=== PATIENT | male | born 1975 | race Caucasian/White ===

== ENCOUNTER 2019-05-14 10:46 | Inpatient (IN) | payer MEDICAID ==
[2019-05-14 11:21] LABS: CHLORIDE,CL 98 mEq/L (98-106); SODIUM,NA 134 mEq/L (136-145)
[2019-05-14] MEDS ORDERED: Ondansetron 4 MG/2 ML SDV IV PRN (11:52)
[2019-05-14] MEDS: Sodium Chloride 0.9% 1,000 ML IV SCH (12:34)
[2019-05-14] MEDS: Pantoprazole 40 MG Vial IVPUSH SCH (12:42)
[2019-05-14] MEDS: metroNIDAZOLE/Normal Saline 500 MG in Premix Bag 1 BAG IV SCH ×2 (12:46→20:23)
[2019-05-14] MEDS ORDERED: Barium Sulfate Oral Susp 450 ML Bottle PO ONE (14:57)
[2019-05-14] MEDS ORDERED: Albuterol 0.083% 2.5 MG/3 ML Neb Soln INH PRN (15:48)
[2019-05-14] MEDS ORDERED: Insulin Regular, Human 100 Units/ML 10 ML Vial SUBCUT SCH (16:00)
[2019-05-14] MEDS: Insulin Lispro 100 Units/ML 3 ML Vial SUBCUT SCH ×2 (18:00→21:15)
[2019-05-14] MEDS ORDERED: OLOPATADINE HCL EYEBOTH SCH (20:00)
[2019-05-14] MEDS: Fluticasone Propionate Nasal Spray 16 GM Bottle NASBOTH SCH (20:22)
[2019-05-14] MEDS: Gabapentin 300 MG Cap PO SCH (20:25)
[2019-05-14] MEDS: Benztropine 1 MG Tab PO SCH (20:25)
[2019-05-14] MEDS: risperiDONE 1 MG Tab PO SCH (20:26)
[2019-05-14] MEDS: Budesonide 0.5 MG/2 ML Neb Susp INH SCH (20:27)
[2019-05-15] MEDS: Pantoprazole 40 MG Vial IVPUSH SCH ×3 (00:07→23:37)
[2019-05-15] MEDS: Sodium Chloride 0.9% 1,000 ML IV SCH ×2 (00:11→08:45)
[2019-05-15] MEDS: metroNIDAZOLE/Normal Saline 500 MG in Premix Bag 1 BAG IV SCH ×2 (03:32→12:00)
[2019-05-15] MEDS ORDERED: PILOCARPINE PO SCH (08:00)
[2019-05-15] MEDS: Gabapentin 300 MG Cap PO SCH ×3 (08:03→20:09)
[2019-05-15] MEDS: Sertraline 100 MG Tab PO SCH (08:03)
[2019-05-15] MEDS: Losartan 25 MG Tab PO SCH (08:03)
[2019-05-15] MEDS: Benztropine 1 MG Tab PO SCH ×3 (08:03→20:10)
[2019-05-15] MEDS: Budesonide 0.5 MG/2 ML Neb Susp INH SCH ×2 (08:05→20:09)
[2019-05-15] MEDS: Insulin Lispro 100 Units/ML 3 ML Vial SUBCUT SCH ×4 (08:16→20:33)
--- NOTE | 2019-05-15 09:30 | PCM.PN ---
- General Info Date of Service: 05/15/19 Admission Dx/Problem (Free Text): Bowel Obstruction Functional Status: Reports: Pain Controlled, Tolerating Diet, Ambulating - Review of Systems General: Denies: Fever, Weakness, Fatigue, Malaise HEENT: Reports: No Symptoms Pulmonary: Denies: Shortness of Breath Cardiovascular: Denies: Chest Pain, Lightheadedness Gastrointestinal: Denies: Abdominal Pain (mild "soreness"), Nausea, Vomiting Genitourinary: Reports: No Symptoms Musculoskeletal: Reports: No Symptoms Skin: Reports: No Symptoms Neurological: Reports: No Symptoms - Patient Data Vitals - Most Recent: Last Vital Signs Temp 97.8 F 05/15/19 03:51 Pulse 116 H 05/15/19 03:51 Resp 16 05/15/19 03:51 BP 164/87 H 05/15/19 08:03 Pulse Ox 97 05/15/19 03:51 Weight - Most Recent: 189 lb I&O - Last 24 Hours: Intake & Output 05/14/19 05/15/19 05/15/19 22:59 06:59 14:59 Intake Total 2358 212 2464 Output Total 650 900 Balance 450 -300 1000 Lab Results Last 24 Hours: Laboratory Results - last 24 hr 05/14/19 05/14/19 05/14/19 Range/Units 10:51 10:51 10:51 WBC 7.3 (5.0-10.0) 10^3/uL RBC 5.36 (4.50-6.00) 10^6/uL Hgb 15.3 (14.0-18.0) g/dL Hct 46.3 (40.0-54.0) % MCV 86.4 (82.0-94.0) fL MCH 28.5 (27.0-32.0) pg MCHC 33.0 (33.0-38.0) g/dL RDW Coeff of Justin 14.6 (11.0-15.0) % Plt Count 221 (150-400) 10^3/uL Neut % (Auto) 56.1 (35-85) % Lymph % (Auto) 21.4 (10-55) % [place] % (Auto) 19.9 H (0-16) % Eos % (Auto) 2.5 (0-5) % Baso % (Auto) 0.1 (0-3) % Neut # (Auto) 4.07 (1.80-7.00) 10^3/uL Lymph # (Auto) 1.55 (1.00-4.80) 10^3/uL [place] # (Auto) 1.44 H (0.00-0.80) 10^3/uL Eos # (Auto) 0.18 (0.00-0.45) 10^3/uL Baso # (Auto) 0.01 10^3/uL Sodium 134 L (136-145) mEq/L Potassium 4.5 (3.5-5.0) mEq/L Chloride 98 (98-106) mEq/L Carbon Dioxide 26 (21-32) mmol/L BUN 59 H D (7-18) mg/dL Creatinine 1.8 H (0.7-1.3) mg/dL Est Cr Clr Drug Dosing TNP Estimated GFR (MDRD) 41 L (>=60) mL/min Glucose 195 H D (75-99) mg/dL POC Glucose (75-105) mg/dl Lactic Acid (0.4-2.0) mmol/L Calcium 8.4 (8.4-10.1) mg/dL Magnesium 2.2 (1.8-2.4) mg/dL Total Bilirubin 0.5 (0.0-1.0) mg/dL AST 22 (15-37) U/L ALT 35 (12-78) U/L Alkaline Phosphatase 96 (46-116) U/L C-Reactive Protein 12.4 H (0.2-0.8) mg/dL Total Protein 8.1 (6.4-8.2) g/dL Albumin 3.6 (3.4-5.0) g/dL Amylase 12 L (25-115) U/L Urine Color Yellow (YELLOW) Urine Appearance Clear (CLEAR) Urine pH 5.5 (4.5-8.0) Ur Specific [place] 1.015 (1.003-1.020) Urine Protein Negative (NEGATIVE) mg/dL Urine Glucose (UA) 100 H (NEGATIVE) mg/dL Urine Ketones Negative (NEGATIVE) mg/dL Urine Occult Blood Negative (NEGATIVE) Urine Nitrite Negative (NEGATIVE) Urine Bilirubin Negative (NEGATIVE) Urine Urobilinogen 0.2 (0.2-1.0) EU/dL Ur Leukocyte Esterase Trace H (NEGATIVE) Urine RBC 0-5 (0-5) /HPF Urine WBC Not seen (0-5) /HPF 05/14/19 05/14/19 05/14/19 Range/Units 10:51 17:59 21:14 WBC (5.0-10.0) 10^3/uL RBC (4.50-6.00) 10^6/uL Hgb (14.0-18.0) g/dL Hct (40.0-54.0) % MCV (82.0-94.0) fL MCH (27.0-32.0) pg MCHC (33.0-38.0) g/dL RDW Coeff of Justin (11.0-15.0) % Plt Count (150-400) 10^3/uL Neut % (Auto) (35-85) % Lymph % (Auto) (10-55) % [place] % (Auto) (0-16) % Eos % (Auto) (0-5) % Baso % (Auto) (0-3) % Neut # (Auto) (1.80-7.00) 10^3/uL Lymph # (Auto) (1.00-4.80) 10^3/uL [place] # (Auto) (0.00-0.80) 10^3/uL Eos # (Auto) (0.00-0.45) 10^3/uL Baso # (Auto) 10^3/uL Sodium (136-145) mEq/L Potassium (3.5-5.0) mEq/L Chloride (98-106) mEq/L Carbon Dioxide (21-32) mmol/L BUN (7-18) mg/dL Creatinine (0.7-1.3) mg/dL Est Cr Clr Drug Dosing Estimated GFR (MDRD) (>=60) mL/min Glucose (75-99) mg/dL POC Glucose 143 H 140 H (75-105) mg/dl Lactic Acid 1.2 (0.4-2.0) mmol/L Calcium (8.4-10.1) mg/dL Magnesium (1.8-2.4) mg/dL Total Bilirubin (0.0-1.0) mg/dL AST (15-37) U/L ALT (12-78) U/L Alkaline Phosphatase (46-116) U/L C-Reactive Protein (0.2-0.8) mg/dL Total Protein (6.4-8.2) g/dL Albumin (3.4-5.0) g/dL Amylase (25-115) U/L Urine Color (YELLOW) Urine Appearance (CLEAR) Urine pH (4.5-8.0) Ur Specific [place] (1.003-1.020) Urine Protein (NEGATIVE) mg/dL Urine Glucose (UA) (NEGATIVE) mg/dL Urine Ketones (NEGATIVE) mg/dL Urine Occult Blood (NEGATIVE) Urine Nitrite (NEGATIVE) Urine Bilirubin (NEGATIVE) Urine Urobilinogen (0.2-1.0) EU/dL Ur Leukocyte Esterase (NEGATIVE) Urine RBC (0-5) /HPF Urine WBC (0-5) /HPF 05/15/19 05/15/19 05/15/19 Range/Units 08:09 08:45 08:45 WBC 8.4 (5.0-10.0) 10^3/uL RBC 5.02 (4.50-6.00) 10^6/uL Hgb 14.4 (14.0-18.0) g/dL Hct 43.4 (40.0-54.0) % MCV 86.5 (82.0-94.0) fL MCH 28.7 (27.0-32.0) pg MCHC 33.2 (33.0-38.0) g/dL RDW Coeff of Justin 14.5 (11.0-15.0) % Plt Count 202 (150-400) 10^3/uL Neut % (Auto) 79.4 (35-85) % Lymph % (Auto) 8.2 L (10-55) % [place] % (Auto) 12.2 (0-16) % Eos % (Auto) 0.2 (0-5) % Baso % (Auto) 0 (0-3) % Neut # (Auto) 6.65 (1.80-7.00) 10^3/uL Lymph # (Auto) 0.69 L (1.00-4.80) 10^3/uL [place] # (Auto) 1.02 H (0.00-0.80) 10^3/uL Eos # (Auto) 0.02 (0.00-0.45) 10^3/uL Baso # (Auto) 0.00 10^3/uL Sodium 135 L (136-145) mEq/L Potassium 4.2 (3.5-5.0) mEq/L Chloride 101 (98-106) mEq/L Carbon Dioxide 21 (21-32) mmol/L BUN 40 H (7-18) mg/dL Creatinine 1.4 H (0.7-1.3) mg/dL Est Cr Clr Drug Dosing 64.46 Estimated GFR (MDRD) 55 L (>=60) mL/min Glucose 202 H (75-99) mg/dL POC Glucose 184 H (75-105) mg/dl Lactic Acid (0.4-2.0) mmol/L Calcium 8.0 L (8.4-10.1) mg/dL Magnesium (1.8-2.4) mg/dL Total Bilirubin (0.0-1.0) mg/dL AST (15-37) U/L ALT (12-78) U/L Alkaline Phosphatase (46-116) U/L C-Reactive Protein (0.2-0.8) mg/dL Total Protein (6.4-8.2) g/dL Albumin (3.4-5.0) g/dL Amylase (25-115) U/L Urine Color (YELLOW) Urine Appearance (CLEAR) Urine pH (4.5-8.0) Ur Specific [place] (1.003-1.020) Urine Protein (NEGATIVE) mg/dL Urine Glucose (UA) (NEGATIVE) mg/dL Urine Ketones (NEGATIVE) mg/dL Urine Occult Blood (NEGATIVE) Urine Nitrite (NEGATIVE) Urine Bilirubin (NEGATIVE) Urine Urobilinogen (0.2-1.0) EU/dL Ur Leukocyte Esterase (NEGATIVE) Urine RBC (0-5) /HPF Urine WBC (0-5) /HPF Mil Results Last 24 Hours: Microbiology 05/14/19 11:54 C. difficile DNA Amplification - Final Stool / Feces NEGATIVE CDIFF BY DNA REFERENCE RANGE: NEGATIVE 05/14/19 11:54 Stool for WBCs - Final Stool / Feces NO WBC SEEN REFERENCE RANGE: NO WBC SEEN Med Orders - Current: Current Medications Albuterol (Proventil Neb Soln) 2.5 mg INH QID PRN PRN Reason: Shortness of Breath Benztropine Mesylate (Cogentin) 1 mg PO TID [facility] Last Admin: 05/15/19 08:03 Dose: 1 mg Budesonide (Pulmicort) 0.5 mg INH BIDRT [facility] Last Admin: 05/15/19 08:05 Dose: 0.5 mg Fluticasone Propionate (Flonase) 0 gm NASBOTH BEDTIME [facility] Last Admin: 05/14/19 20:22 Dose: 1 spray Gabapentin (Neurontin) 300 mg PO TID [facility] Last Admin: 05/15/19 08:03 Dose: 300 mg Metronidazole 500 mg/ Premix 100 mls @ 100 mls/hr IV Q8H [facility] Last Admin: 05/15/19 03:32 Dose: 100 mls/hr Sodium Chloride (Normal Saline) 1,000 mls @ 125 mls/hr IV ASDIRECTED [facility] Last Admin: 05/15/19 08:45 Dose: 125 mls/hr Insulin Human Lispro (Humalog) 0 unit SUBCUT WITHMEALSANDBED [facility]; Protocol Last Admin: 05/15/19 08:16 Dose: 2 units Losartan Potassium (Cozaar) 25 mg PO DAILY [facility] Last Admin: 05/15/19 08:03 Dose: 25 mg Non-Formulary Medication (Olopatadine Hcl [Patanol]) 1 drop EYEBOTH BID [facility] Non-Formulary Medication (Pilocarpine [Pilocar 1% Ophth Soln]) 1 applic PO DAILY [facility] Ondansetron HCl (Zofran) 8 mg IV Q6H PRN PRN Reason: Nausea/Vomiting Pantoprazole Sodium (Protonix Iv) 40 mg IVPUSH Q12H [facility] Last Admin: 05/15/19 00:07 Dose: 40 mg Risperidone (Risperidal) 1.5 mg PO BEDTIME [facility] Last Admin: 05/14/19 20:26 Dose: 1.5 mg Sertraline HCl (Zoloft) 200 mg PO DAILY [facility] Last Admin: 05/15/19 08:03 Dose: 200 mg Discontinued Medications Barium Sulfate (Readi-Cat 2) 900 ml PO ONETIME ONE Stop: 05/14/19 14:58 Last Admin: 05/14/19 16:13 Dose: 900 ml - Exam General: Alert, Oriented HEENT: Mucous Membr. Moist/[place] Neck: Supple Lungs: Clear to Auscultation, Normal Respiratory Effort Cardiovascular: Regular Rate, Regular Rhythm GI/Abdominal Exam: Distended, Abnormal Bowel Sounds. No: Tender Extremities: Normal Inspection Skin: Warm, Dry Neurological: No New Focal Deficit Sepsis Event Note - Evaluation Sepsis Screening Result: No Definite Risk - Focused Exam Vital Signs: Vital Signs Temp Pulse Resp BP BP Pulse Ox 05/15/19 08:03 164/87 H 05/15/19 03:51 97.8 F 116 H 16 147/87 H 97 05/15/19 00:00 97.9 F 118 H 16 149/87 H 96 Date Exam was Performed: 05/15/19 Time Exam was Performed: 09:19 - Problem List & Annotations (1) Small bowel obstruction SNOMED Code(s): 023360057 Code(s): K56.609 - UNSP INTESTNL OBST, UNSP TO PARTIAL VERSUS COMPLETE OBST Status: Acute Priority: High Current Visit: Yes (2) Diabetes mellitus type 2 SNOMED Code(s): 96690433 Code(s): E11.9 - TYPE 2 DIABETES MELLITUS WITHOUT COMPLICATIONS Status: Chronic Priority: High Current Visit: Yes - Problem List Review Problem List Initiated/Reviewed/Updated: Yes - My Orders Last 24 Hours: My Active Orders 05/14/19 15:48 Albuterol [Proventil Neb Soln] 2.5 mg INH QID PRN 05/14/19 17:30 Insulin Lispro [HumaLOG] See Protocol SUBCUT WITHMEALSANDBED 05/14/19 20:00 Benztropine [Cogentin] 1 mg PO TID Budesonide [Pulmicort] 0.5 mg INH BIDRT Fluticasone Propionate [Flonase] 0 gm NASBOTH BEDTIME Gabapentin [Neurontin] 300 mg PO TID Olopatadine HCl [Patanol] 1 drop EYEBOTH BID risperiDONE [RisperiDAL] 1.5 mg PO BEDTIME 05/15/19 08:00 Losartan [Cozaar] 25 mg PO DAILY Pilocarpine [Pilocar 1% Ophth Soln] 1 applic PO DAILY Sertraline [Zoloft] 200 mg PO DAILY - Assessment Assessment:: Small Bowel Obstruction - Plan Plan:: Patient admits to feeling less abdominal discomfort today. Does note abdomen still distended. Tolerated clear liquids this am. Has not been passing flatus. Had small stool yesterday, c diff was collected, negative. Essentially nontender with palpation. Bowel sounds hypoactive, none noted in LLQ. Encouraged ambulation. Continue IV fluids. Reevaluate at noon today to determine if any surgical intervention may be warranted.
[2019-05-15] MEDS: risperiDONE 1 MG Tab PO SCH (20:10)
[2019-05-15] MEDS: Dextrose 5%-0.45% NaCl 1,000 ML IV SCH (20:11)
[2019-05-15] MEDS: Fluticasone Propionate Nasal Spray 16 GM Bottle NASBOTH SCH (20:11)
[2019-05-16] MEDS: Dextrose 5%-0.45% NaCl 1,000 ML IV SCH ×2 (06:53→20:23)
[2019-05-16] MEDS: Losartan 25 MG Tab PO SCH (07:41)
[2019-05-16] MEDS: Sertraline 100 MG Tab PO SCH (07:41)
[2019-05-16] MEDS: Benztropine 1 MG Tab PO SCH ×3 (07:42→19:36)
[2019-05-16] MEDS: Budesonide 0.5 MG/2 ML Neb Susp INH SCH ×2 (07:42→19:36)
[2019-05-16] MEDS: Gabapentin 300 MG Cap PO SCH ×3 (07:42→19:36)
[2019-05-16] MEDS: Insulin Lispro 100 Units/ML 3 ML Vial SUBCUT SCH ×4 (07:55→20:22)
[2019-05-16] MEDS: Pantoprazole 40 MG Vial IVPUSH SCH ×2 (12:01→23:37)
[2019-05-16] MEDS: risperiDONE 1 MG Tab PO SCH (19:36)
[2019-05-16] MEDS: Fluticasone Propionate Nasal Spray 16 GM Bottle NASBOTH SCH (19:37)
--- NOTE | 2019-05-16 20:03 | PCM.PN ---
- General Info Date of Service: 05/16/19 Admission Dx/Problem (Free Text): Bowel Obstruction Functional Status: Reports: Pain Controlled, Ambulating - Review of Systems General: Denies: Fever, Weakness, Fatigue, Malaise HEENT: Reports: No Symptoms Pulmonary: Denies: Shortness of Breath, Cough Cardiovascular: Denies: Chest Pain, Edema, Lightheadedness Gastrointestinal: Reports: Abdominal Pain, Flatus, Nausea. Denies: Vomiting Genitourinary: Reports: No Symptoms Musculoskeletal: Reports: No Symptoms Skin: Reports: No Symptoms Neurological: Reports: No Symptoms - Patient Data Vitals - Most Recent: Last Vital Signs Temp 97.9 F 05/16/19 19:35 Pulse 89 05/16/19 19:35 Resp 16 05/16/19 19:35 BP 119/75 05/16/19 19:35 Pulse Ox 98 05/16/19 19:35 Weight - Most Recent: 189 lb I&O - Last 24 Hours: Intake & Output 05/16/19 05/16/19 05/16/19 06:59 14:59 22:59 Intake Total 1300 162 Balance 1300 162 Lab Results Last 24 Hours: Laboratory Results - last 24 hr 05/15/19 05/15/19 05/16/19 Range/Units 16:53 20:17 07:40 WBC (5.0-10.0) 10^3/uL RBC (4.50-6.00) 10^6/uL Hgb (14.0-18.0) g/dL Hct (40.0-54.0) % MCV (82.0-94.0) fL MCH (27.0-32.0) pg MCHC (33.0-38.0) g/dL RDW Coeff of Justin (11.0-15.0) % Plt Count (150-400) 10^3/uL Neut % (Auto) (35-85) % Lymph % (Auto) (10-55) % [place] % (Auto) (0-16) % Eos % (Auto) (0-5) % Baso % (Auto) (0-3) % Neut # (Auto) (1.80-7.00) 10^3/uL Lymph # (Auto) (1.00-4.80) 10^3/uL [place] # (Auto) (0.00-0.80) 10^3/uL Eos # (Auto) (0.00-0.45) 10^3/uL Baso # (Auto) 10^3/uL Sodium (136-145) mEq/L Potassium (3.5-5.0) mEq/L Chloride (98-106) mEq/L Carbon Dioxide (21-32) mmol/L BUN (7-18) mg/dL Creatinine (0.7-1.3) mg/dL Est Cr Clr Drug Dosing mL/min Estimated GFR (MDRD) (>=60) mL/min Glucose (75-99) mg/dL POC Glucose 80 97 205 H (75-105) mg/dl Calcium (8.4-10.1) mg/dL Total Bilirubin (0.0-1.0) mg/dL AST (15-37) U/L ALT (12-78) U/L Alkaline Phosphatase (46-116) U/L C-Reactive Protein (0.2-0.8) mg/dL Total Protein (6.4-8.2) g/dL Albumin (3.4-5.0) g/dL 05/16/19 05/16/19 05/16/19 Range/Units 09:34 09:34 12:00 WBC 7.5 (5.0-10.0) 10^3/uL RBC 4.74 (4.50-6.00) 10^6/uL Hgb 13.5 L (14.0-18.0) g/dL Hct 41.2 (40.0-54.0) % MCV 86.9 (82.0-94.0) fL MCH 28.5 (27.0-32.0) pg MCHC 32.8 L (33.0-38.0) g/dL RDW Coeff of Justin 14.5 (11.0-15.0) % Plt Count 168 (150-400) 10^3/uL Neut % (Auto) 75.1 (35-85) % Lymph % (Auto) 13.0 (10-55) % [place] % (Auto) 10.1 (0-16) % Eos % (Auto) 1.7 (0-5) % Baso % (Auto) 0.1 (0-3) % Neut # (Auto) 5.66 (1.80-7.00) 10^3/uL Lymph # (Auto) 0.98 L (1.00-4.80) 10^3/uL [place] # (Auto) 0.76 (0.00-0.80) 10^3/uL Eos # (Auto) 0.13 (0.00-0.45) 10^3/uL Baso # (Auto) 0.01 10^3/uL Sodium 136 (136-145) mEq/L Potassium 4.5 (3.5-5.0) mEq/L Chloride 104 (98-106) mEq/L Carbon Dioxide 22 (21-32) mmol/L BUN 27 H (7-18) mg/dL Creatinine 1.3 (0.7-1.3) mg/dL Est Cr Clr Drug Dosing 69.42 mL/min Estimated GFR (MDRD) 60 (>=60) mL/min Glucose 218 H (75-99) mg/dL POC Glucose 234 H (75-105) mg/dl Calcium 8.3 L (8.4-10.1) mg/dL Total Bilirubin 0.3 (0.0-1.0) mg/dL AST 19 (15-37) U/L ALT 28 (12-78) U/L Alkaline Phosphatase 82 (46-116) U/L C-Reactive Protein 7.3 H (0.2-0.8) mg/dL Total Protein 6.8 (6.4-8.2) g/dL Albumin 3.1 L (3.4-5.0) g/dL Med Orders - Current: Current Medications Albuterol (Proventil Neb Soln) 2.5 mg INH QID PRN PRN Reason: Shortness of Breath Benztropine Mesylate (Cogentin) 1 mg PO TID [facility] Last Admin: 05/16/19 19:36 Dose: 1 mg Budesonide (Pulmicort) 0.5 mg INH BIDRT [facility] Last Admin: 05/16/19 19:36 Dose: 0.5 mg Fluticasone Propionate (Flonase) 0 gm NASBOTH BEDTIME [facility] Last Admin: 05/16/19 19:37 Dose: 1 spray Gabapentin (Neurontin) 300 mg PO TID [facility] Last Admin: 05/16/19 19:36 Dose: 300 mg Dextrose/Sodium Chloride (Dextrose 5%-1/2 Ns) 1,000 mls @ 50 mls/hr IV ASDIRECTED [facility] Last Infusion: 05/16/19 08:30 Dose: 50 mls/hr Insulin Human Lispro (Humalog) 0 unit SUBCUT WITHMEALSANDBED [facility]; Protocol Last Admin: 05/16/19 17:27 Dose: 4 units Losartan Potassium (Cozaar) 25 mg PO DAILY [facility] Last Admin: 05/16/19 07:41 Dose: 25 mg Non-Formulary Medication (Olopatadine Hcl [Patanol]) 1 drop EYEBOTH BID [facility] Non-Formulary Medication (Pilocarpine [Pilocar 1% Ophth Soln]) 1 applic PO DAILY [facility] Ondansetron HCl (Zofran) 8 mg IV Q6H PRN PRN Reason: Nausea/Vomiting Pantoprazole Sodium (Protonix Iv) 40 mg IVPUSH Q12H [facility] Last Admin: 05/16/19 12:01 Dose: 40 mg Risperidone (Risperidal) 1.5 mg PO BEDTIME [facility] Last Admin: 05/16/19 19:36 Dose: 1.5 mg Sertraline HCl (Zoloft) 200 mg PO DAILY [facility] Last Admin: 05/16/19 07:41 Dose: 200 mg Discontinued Medications Barium Sulfate (Readi-Cat 2) 900 ml PO ONETIME ONE Stop: 05/14/19 14:58 Last Admin: 05/14/19 16:13 Dose: 900 ml Metronidazole 500 mg/ Premix 100 mls @ 100 mls/hr IV Q8H [facility] Last Admin: 05/15/19 12:00 Dose: 100 mls/hr Sodium Chloride (Normal Saline) 1,000 mls @ 125 mls/hr IV ASDIRECTED [facility] Last Admin: 05/15/19 08:45 Dose: 125 mls/hr - Exam General: Alert, Oriented HEENT: Mucous Membr. Moist/[place] Neck: Supple Lungs: Clear to Auscultation, Normal Respiratory Effort Cardiovascular: Regular Rate, Regular Rhythm GI/Abdominal Exam: Soft, Tender (left upper and lower quadrant tender, hypoactive bowel sounds), Abnormal Bowel Sounds Extremities: Normal Inspection, No Pedal Edema Skin: Warm, Dry Neurological: No New Focal Deficit Sepsis Event Note - Evaluation Sepsis Screening Result: No Definite Risk - Focused Exam Vital Signs: Vital Signs Temp Pulse Resp BP Pulse Ox 05/16/19 19:35 97.9 F 89 16 119/75 98 05/16/19 16:00 98.3 F 96 18 121/80 100 05/16/19 12:00 97.7 F 95 18 128/75 100 Date Exam was Performed: 05/16/19 Time Exam was Performed: 19:54 - Problem List & Annotations (1) Small bowel obstruction SNOMED Code(s): 062173970 Code(s): K56.609 - UNSP INTESTNL OBST, UNSP TO PARTIAL VERSUS COMPLETE OBST Status: Acute Priority: High Current Visit: Yes (2) Diabetes mellitus type 2 SNOMED Code(s): 90791282 Code(s): E11.9 - TYPE 2 DIABETES MELLITUS WITHOUT COMPLICATIONS Status: Chronic Priority: High Current Visit: Yes - Problem List Review Problem List Initiated/Reviewed/Updated: Yes - My Orders Last 24 Hours: My Active Orders 05/16/19 05:11 Abdomen 2V AP Flat Upright [CR] Routine - Assessment Assessment:: Small Bowel Obstruction - Plan Plan:: Patient admits to feeling less abdominal discomfort today. Does note abdomen still distended. Tolerated clear liquids this am. Has not been passing flatus. Had small stool yesterday, c diff was collected, negative. Essentially nontender with palpation. Bowel sounds hypoactive, none noted in LLQ. Encouraged ambulation. Continue IV fluids. Reevaluate at noon today to determine if any surgical intervention may be warranted. 05-16-2019 Patient has been active, ambulating about frequently yesterday and this am. He has had 2 large stools thus far. Is passing flatus. As did not have good active bowel sounds yesterday, was placed back on NPO status. States "feels hungry this am". Abdomen is softer this am, hypoactive bowel sounds noted. Labs noted normal today. Blood pressure stable. Xray done this am does show improvement. Reduce IV fluids to 50 ml/hr. Start clear liquids. Continue ambulation.
[2019-05-17 08:07] VITALS: BP 120/80; PULSE 97
[2019-05-17] MEDS: Losartan 25 MG Tab PO SCH (08:07)
[2019-05-17] MEDS: Gabapentin 300 MG Cap PO SCH (08:07)
[2019-05-17] MEDS: Benztropine 1 MG Tab PO SCH (08:07)
[2019-05-17] MEDS: Sertraline 100 MG Tab PO SCH (08:07)
[2019-05-17] MEDS: Insulin Lispro 100 Units/ML 3 ML Vial SUBCUT SCH (08:08)
[2019-05-17] MEDS: Budesonide 0.5 MG/2 ML Neb Susp INH SCH (08:43)
--- NOTE | 2019-05-17 08:46 | PCM.DCSUM1 ---
Discharge Summary - Hospital Course HPI Initial Comments: This patient is a 44 year old male that presented with bowel obstruction. Yesterday he had several large bowel movements. Started advancing diet yesterday , today he is eating a regular diet. The patient today reports he has no abdominal pain. He denies nausea, vomiting. No fever. Patient reports he is ready to go home. He reports today is his birthday and he wants to go home. Modified Aye Scale: No Symptoms at All Modified Aye Scale Score: 0 - Discharge Data Discharge Date: 05/17/19 Discharge Disposition: Home, Self-Care 01 Condition: Good - Referral to Home Health Primary Care Physician: Uche Francisco MD - Patient Instructions Diet: Usual Diet as Tolerated Activity: As Tolerated Showering/Bathing: May Shower Notify Provider of: Fever, Increased Pain, Nausea and/or Vomiting Other/Special Instructions: Followup with your primary care provider in about 6- 8 days. Return as needed. Return for abndominal pain, nausea, vomiting, fever. Increase fluids. Miralax daily as needed for constipation sent to [facility] - Discharge Plan *PRESCRIPTION DRUG MONITORING PROGRAM REVIEWED*: Not Applicable *COPY OF PRESCRIPTION DRUG MONITORING REPORT IN PATIENT [place]: Not Applicable Prescriptions/Med Rec: polyethylene glycoL 3350 [MiraLAX] 17 gm PO DAILY PRN #60 packet PRN Reason: Constipation Home Medications: Home Meds Multivitamin with Minerals [Multivitamins with Minerals] 1 each PO DAILY [History] Sertraline [Zoloft] 200 mg PO DAILY 06/21/13 [History] atorvaSTATin [Lipitor] 10 mg PO BEDTIME 06/21/13 [History] Albuterol [Proventil Neb Soln] 2.5 mg INH QID PRN 12/11/14 [History] Benztropine [Cogentin] 1 mg PO TID 12/11/14 [History] Budesonide [Pulmicort] 0.5 mg IH BID 12/11/14 [History] Insulin Glarg,Human.Rec.Analog [LantUS Solostar] 42 units SUBCUT BID 12/11/14 [ History] Insulin Lispro [HumaLOG] 6 unit SUBCUT WITHBREAKFAST 12/11/14 [History] Insulin Lispro [HumaLOG] 6 unit SUBCUT WITHLUNCH 12/11/14 [History] Insulin Lispro [HumaLOG] 10 unit SUBCUT WITHDINNER 12/11/14 [History] Ipratropium [place] 0.2 mg IH QID PRN 12/11/14 [History] Omeprazole 20 mg PO DAILY 12/11/14 [History] risperiDONE 1.5 mg PO BEDTIME 12/11/14 [History] Ammonium Lactate [Amlactin] 1 applic TOP BID 05/14/19 [History] Bacitracin [Bacitracin Oint] 1 applic NASBOTH BID 05/14/19 [History] Fluticasone Propionate [Flonase] 1 applic NASBOTH BEDTIME 05/14/19 [History] Gabapentin [Neurontin] 300 mg PO TID 05/14/19 [History] Glucagon,Human Recombinant [Glucagon Emergency Kit] 1 mg IM ASDIRECTED PRN 05/14 [History] Insulin Lispro [HumaLOG] 3 - 5 units SUBCUT QID 05/14/19 [History] Losartan [Cozaar] 25 mg PO DAILY 05/14/19 [History] Menthol [Biofreeze] 1 applic TOP BID PRN 05/14/19 [History] Mineral Oil/Petrolatum [Aquaphor Healing Oint] 1 applic TOP ASDIRECTED PRN 05/14 [History] Mineral Oil/Petrolatum [Aquaphor Healing Oint] 1 applic TOP BID 05/14/19 [ History] Montelukast [Singulair] 10 mg PO BEDTIME 05/14/19 [History] Olopatadine HCl [Patanol] 1 drop EYEBOTH BID 05/14/19 [History] Omeprazole 40 mg PO DAILY 05/14/19 [History] Pilocarpine [Pilocar 1% Ophth Soln] 1 applic PO DAILY 05/14/19 [History] Saliva Substitute Combo No.9 [Biotene] 1,000 ml MM BID 05/14/19 [History] polyethylene glycoL 3350 [MiraLAX] 17 gm PO DAILY PRN #60 packet 05/17/19 [Rx] Oxygen Therapy Mode: Room Air Patient Handouts: Small Bowel Obstruction, [id number] - Discharge Summary/Plan Comment DC Time >30 min.: No - General Info Functional Status: Reports: Pain Controlled, Tolerating Diet (eatin regular diet this morning without issue), Ambulating, Urinating - Review of Systems General: Reports: No Symptoms. Denies: Fever HEENT: Reports: No Symptoms Pulmonary: Reports: No Symptoms Cardiovascular: Reports: No Symptoms Gastrointestinal: Reports: No Symptoms. Denies: Abdominal Pain, Nausea, Vomiting Genitourinary: Reports: No Symptoms Musculoskeletal: Reports: No Symptoms Skin: Reports: No Symptoms Neurological: Reports: No Symptoms Psychiatric: Reports: No Symptoms - Patient Data Vitals - Most Recent: Last Vital Signs Temp 96.1 F L 05/17/19 08:00 Pulse 97 05/17/19 08:00 Resp 18 05/17/19 08:00 BP 120/80 05/17/19 08:07 Pulse Ox 98 05/17/19 08:00 Weight - Most Recent: 189 lb I&O - Last 24 hours: Intake & Output 05/16/19 05/17/19 05/17/19 22:59 06:59 14:59 Intake Total 594 Balance 594 Lab Results - Last 24 hrs: Laboratory Results - last 24 hr 05/16/19 05/16/19 05/16/19 Range/Units 09:34 09:34 12:00 WBC 7.5 (5.0-10.0) 10^3/uL RBC 4.74 (4.50-6.00) 10^6/uL Hgb 13.5 L (14.0-18.0) g/dL Hct 41.2 (40.0-54.0) % MCV 86.9 (82.0-94.0) fL MCH 28.5 (27.0-32.0) pg MCHC 32.8 L (33.0-38.0) g/dL RDW Coeff of Justin 14.5 (11.0-15.0) % Plt Count 168 (150-400) 10^3/uL Neut % (Auto) 75.1 (35-85) % Lymph % (Auto) 13.0 (10-55) % [place] % (Auto) 10.1 (0-16) % Eos % (Auto) 1.7 (0-5) % Baso % (Auto) 0.1 (0-3) % Neut # (Auto) 5.66 (1.80-7.00) 10^3/uL Lymph # (Auto) 0.98 L (1.00-4.80) 10^3/uL [place] # (Auto) 0.76 (0.00-0.80) 10^3/uL Eos # (Auto) 0.13 (0.00-0.45) 10^3/uL Baso # (Auto) 0.01 10^3/uL Add Manual Diff Neutrophils % (Manual) (35-85) % Band Neutrophils % (0-5) % Lymphocytes % (Manual) (21-55) % Monocytes % (Manual) (2-12) % Eosinophils % (Manual) (0-5) % Basophils % (Manual) (0-3) % Metamyelocytes % % Absolute Neutrophils (1.80-7.00) 10^3/uL Lymphocytes # (Manual) (1.00-4.80) 10^3/uL Monocytes # (Manual) (0.00-0.80) 10^3/uL Eosinophils # (Manual) (0.00-0.45) 10^3/uL Basophils # (Manual) 10^3/uL Platelet Estimate (ADEQUATE) Sodium 136 (136-145) mEq/L Potassium 4.5 (3.5-5.0) mEq/L Chloride 104 (98-106) mEq/L Carbon Dioxide 22 (21-32) mmol/L BUN 27 H (7-18) mg/dL Creatinine 1.3 (0.7-1.3) mg/dL Est Cr Clr Drug Dosing 69.42 mL/min Estimated GFR (MDRD) 60 (>=60) mL/min Glucose 218 H (75-99) mg/dL POC Glucose 234 H (75-105) mg/dl Calcium 8.3 L (8.4-10.1) mg/dL Total Bilirubin 0.3 (0.0-1.0) mg/dL AST 19 (15-37) U/L ALT 28 (12-78) U/L Alkaline Phosphatase 82 (46-116) U/L C-Reactive Protein 7.3 H (0.2-0.8) mg/dL Total Protein 6.8 (6.4-8.2) g/dL Albumin 3.1 L (3.4-5.0) g/dL 05/16/19 05/16/19 05/17/19 Range/Units 17:25 20:18 07:00 WBC 6.4 (5.0-10.0) 10^3/uL RBC 4.87 (4.50-6.00) 10^6/uL Hgb 14.0 (14.0-18.0) g/dL Hct 42.2 (40.0-54.0) % MCV 86.7 (82.0-94.0) fL MCH 28.7 (27.0-32.0) pg MCHC 33.2 (33.0-38.0) g/dL RDW Coeff of Justin 14.7 (11.0-15.0) % Plt Count 178 (150-400) 10^3/uL Neut % (Auto) (35-85) % Lymph % (Auto) (10-55) % [place] % (Auto) (0-16) % Eos % (Auto) (0-5) % Baso % (Auto) (0-3) % Neut # (Auto) (1.80-7.00) 10^3/uL Lymph # (Auto) (1.00-4.80) 10^3/uL [place] # (Auto) (0.00-0.80) 10^3/uL Eos # (Auto) (0.00-0.45) 10^3/uL Baso # (Auto) 10^3/uL Add Manual Diff Yes Neutrophils % (Manual) 56 (35-85) % Band Neutrophils % 2 (0-5) % Lymphocytes % (Manual) 26 (21-55) % Monocytes % (Manual) 13 H (2-12) % Eosinophils % (Manual) 1 (0-5) % Basophils % (Manual) 1 (0-3) % Metamyelocytes % 1 % Absolute Neutrophils 3.71 (1.80-7.00) 10^3/uL Lymphocytes # (Manual) 1.66 (1.00-4.80) 10^3/uL Monocytes # (Manual) 0.83 H (0.00-0.80) 10^3/uL Eosinophils # (Manual) 0.06 (0.00-0.45) 10^3/uL Basophils # (Manual) 0.06 10^3/uL Platelet Estimate Adequate (ADEQUATE) Sodium (136-145) mEq/L Potassium (3.5-5.0) mEq/L Chloride (98-106) mEq/L Carbon Dioxide (21-32) mmol/L BUN (7-18) mg/dL Creatinine (0.7-1.3) mg/dL Est Cr Clr Drug Dosing mL/min Estimated GFR (MDRD) (>=60) mL/min Glucose (75-99) mg/dL POC Glucose 212 H 202 H (75-105) mg/dl Calcium (8.4-10.1) mg/dL Total Bilirubin (0.0-1.0) mg/dL AST (15-37) U/L ALT (12-78) U/L Alkaline Phosphatase (46-116) U/L C-Reactive Protein (0.2-0.8) mg/dL Total Protein (6.4-8.2) g/dL Albumin (3.4-5.0) g/dL 05/17/19 Range/Units 08:05 WBC (5.0-10.0) 10^3/uL RBC (4.50-6.00) 10^6/uL Hgb (14.0-18.0) g/dL Hct (40.0-54.0) % MCV (82.0-94.0) fL MCH (27.0-32.0) pg MCHC (33.0-38.0) g/dL RDW Coeff of Justin (11.0-15.0) % Plt Count (150-400) 10^3/uL Neut % (Auto) (35-85) % Lymph % (Auto) (10-55) % [place] % (Auto) (0-16) % Eos % (Auto) (0-5) % Baso % (Auto) (0-3) % Neut # (Auto) (1.80-7.00) 10^3/uL Lymph # (Auto) (1.00-4.80) 10^3/uL [place] # (Auto) (0.00-0.80) 10^3/uL Eos # (Auto) (0.00-0.45) 10^3/uL Baso # (Auto) 10^3/uL Add Manual Diff Neutrophils % (Manual) (35-85) % Band Neutrophils % (0-5) % Lymphocytes % (Manual) (21-55) % Monocytes % (Manual) (2-12) % Eosinophils % (Manual) (0-5) % Basophils % (Manual) (0-3) % Metamyelocytes % % Absolute Neutrophils (1.80-7.00) 10^3/uL Lymphocytes # (Manual) (1.00-4.80) 10^3/uL Monocytes # (Manual) (0.00-0.80) 10^3/uL Eosinophils # (Manual) (0.00-0.45) 10^3/uL Basophils # (Manual) 10^3/uL Platelet Estimate (ADEQUATE) Sodium (136-145) mEq/L Potassium (3.5-5.0) mEq/L Chloride (98-106) mEq/L Carbon Dioxide (21-32) mmol/L BUN (7-18) mg/dL Creatinine (0.7-1.3) mg/dL Est Cr Clr Drug Dosing mL/min Estimated GFR (MDRD) (>=60) mL/min Glucose (75-99) mg/dL POC Glucose 270 H (75-105) mg/dl Calcium (8.4-10.1) mg/dL Total Bilirubin (0.0-1.0) mg/dL AST (15-37) U/L ALT (12-78) U/L Alkaline Phosphatase (46-116) U/L C-Reactive Protein (0.2-0.8) mg/dL Total Protein (6.4-8.2) g/dL Albumin (3.4-5.0) g/dL Med Orders - Current: Current Medications Albuterol (Proventil Neb Soln) 2.5 mg INH QID PRN PRN Reason: Shortness of Breath Benztropine Mesylate (Cogentin) 1 mg PO TID [facility] Last Admin: 05/17/19 08:07 Dose: 1 mg Budesonide (Pulmicort) 0.5 mg INH BIDRT [facility] Last Admin: 05/16/19 19:36 Dose: 0.5 mg Fluticasone Propionate (Flonase) 0 gm NASBOTH BEDTIME [facility] Last Admin: 05/16/19 19:37 Dose: 1 spray Gabapentin (Neurontin) 300 mg PO TID [facility] Last Admin: 05/17/19 08:07 Dose: 300 mg Dextrose/Sodium Chloride (Dextrose 5%-1/2 Ns) 1,000 mls @ 50 mls/hr IV ASDIRECTED [facility] Last Admin: 05/16/19 20:23 Dose: 50 mls/hr Insulin Human Lispro (Humalog) 0 unit SUBCUT WITHMEALSANDBED [facility]; Protocol Last Admin: 05/17/19 08:08 Dose: 6 units Losartan Potassium (Cozaar) 25 mg PO DAILY [facility] Last Admin: 05/17/19 08:07 Dose: 25 mg Non-Formulary Medication (Olopatadine Hcl [Patanol]) 1 drop EYEBOTH BID [facility] Non-Formulary Medication (Pilocarpine [Pilocar 1% Ophth Soln]) 1 applic PO DAILY [facility] Ondansetron HCl (Zofran) 8 mg IV Q6H PRN PRN Reason: Nausea/Vomiting Pantoprazole Sodium (Protonix Iv) 40 mg IVPUSH Q12H [facility] Last Admin: 05/16/19 23:37 Dose: 40 mg Risperidone (Risperidal) 1.5 mg PO BEDTIME [facility] Last Admin: 05/16/19 19:36 Dose: 1.5 mg Sertraline HCl (Zoloft) 200 mg PO DAILY [facility] Last Admin: 05/17/19 08:07 Dose: 200 mg Discontinued Medications Barium Sulfate (Readi-Cat 2) 900 ml PO ONETIME ONE Stop: 05/14/19 14:58 Last Admin: 05/14/19 16:13 Dose: 900 ml Metronidazole 500 mg/ Premix 100 mls @ 100 mls/hr IV Q8H [facility] Last Admin: 05/15/19 12:00 Dose: 100 mls/hr Sodium Chloride (Normal Saline) 1,000 mls @ 125 mls/hr IV ASDIRECTED [facility] Last Admin: 05/15/19 08:45 Dose: 125 mls/hr - Exam General: Reports: Alert, Oriented, Cooperative HEENT: Reports: Mucous Membr. Moist/[place] Neck: Reports: Supple, Trachea Midline Lungs: Reports: Clear to Auscultation, Normal Respiratory Effort Cardiovascular: Reports: Regular Rate, Regular Rhythm, No Murmurs GI/Abdominal Exam: Normal Bowel Sounds, Soft, Non-Tender Back Exam: Reports: Normal Inspection Extremities: Normal Inspection, Normal Range of Motion, Non-Tender, No Pedal Edema, Normal Capillary Refill Skin: Reports: Warm, Dry, Intact Neurological: Reports: No New Focal Deficit Psy/Mental Status: Reports: Alert, Normal Affect, Normal Mood
== END 2019-05-17 10:45 | disposition home or self-care (01) | DRG 390 ==
LOC: CC.FCMC 10:46 → CC.MS 10:46 → UNDOADMIN 11:40 → CC.MS 11:40
PROVIDERS: ADMIT Family Medicine; ATTEND Family Medicine
DX: K56.609 Unspecified intestinal obstruction, unspecified as to partial versus complete obstruction (principal); E11.40 Type 2 diabetes mellitus with diabetic neuropathy, unspecified; J45.909 Unspecified asthma, uncomplicated; I10 Essential (primary) hypertension; E11.51 Type 2 diabetes mellitus with diabetic peripheral angiopathy without gangrene; K50.90 Crohn's disease, unspecified, without complications; F32.9 Major depressive disorder, single episode, unspecified; E78.5 Hyperlipidemia, unspecified; G40.909 Epilepsy, unspecified, not intractable, without status epilepticus; F17.210 Nicotine dependence, cigarettes, uncomplicated; E11.65 Type 2 diabetes mellitus with hyperglycemia; Z98.890 Other specified postprocedural states; Z88.6 Allergy status to analgesic agent; Z79.51 Long term (current) use of inhaled steroids; Z79.899 Other long term (current) drug therapy; Z79.2 Long term (current) use of antibiotics; Z79.4 Long term (current) use of insulin; R11.2 Nausea with vomiting, unspecified; R19.7 Diarrhea, unspecified; F20.9 Schizophrenia, unspecified
CPT/HCPCS: 36415; 74019; 74176; 80048; 80053; 81001; 82150; 82962; 83605; 83735; 85025; 86140; 87045; 87046; 87493; 89055; 93005; 94640; A9270-GY; C9113; J1815; J3490; J7030; J7042

== ENCOUNTER 2020-02-21 08:21 | Inpatient (IN) | payer MEDICARE, MEDICAID ==
--- NOTE | 2020-02-21 10:15 | EDM.PDOC ---
ED HPI GENERAL MEDICAL PROBLEM - General Chief Complaint: General Stated Complaint: Low O2 Sat Time Seen by Provider: 02/21/20 08:50 Source of Information: Reports: Patient, Other (Rn Advanced) History Limitations: Reports: No Limitations - History of Present Illness INITIAL COMMENTS - FREE TEXT/NARRATIVE: This patient is a 44 year old male that presents to the ER. Patient is a [facility] patient with staff. Patient and staff are historian, patient is alert and oriented. Staff reports patient for 1 week has had congestion, drainage, cough, decreased appetite, shortness of breath, headaches. She reports 9 days ago he was tested for COVID and was negative. She reports he was retested 2 days ago, do not have results yet. She reports he has had low oxygen levels this week in the low 90s. She reports they called PCP and no tx at that time. Today, she reports oxygen was 85-88%. Does not appear distressed. Onset Date: 02/14/20 Duration: Week(s): (1) Severity: Moderate Improves with: Reports: None Worsens with: Reports: None Associated Symptoms: Reports: Cough, Headaches, Loss of Appetite, Shortness of Breath. Denies: Confusion, Chest Pain, cough w sputum, Fever/Chills, Malaise, Nausea/Vomiting, Rash, Seizure, Syncope, Weakness - Related Data Allergies Allergy/AdvReac Type Severity Reaction Status Date / Time hydrocodone Allergy Cannot Verified 02/21/20 08:59 Remember oxycodone Allergy Cannot Verified 02/21/20 08:59 Remember Home Meds: Home Meds Multivitamin with Minerals [Multivitamins with Minerals] 1 each PO DAILY [History] Sertraline [Zoloft] 200 mg PO DAILY 06/21/13 [History] atorvaSTATin [Lipitor] 10 mg PO BEDTIME 06/21/13 [History] Albuterol [Proventil Neb Soln] 2.5 mg INH QID PRN 12/11/14 [History] Benztropine [Cogentin] 1 mg PO TID 12/11/14 [History] Budesonide [Pulmicort] 0.5 mg IH BID 12/11/14 [History] Insulin Glarg,Human.Rec.Analog [LantUS Solostar] 42 units SUBCUT BID 12/11/14 [History] Insulin Lispro [HumaLOG] 6 unit SUBCUT WITHBREAKFAST 12/11/14 [History] Insulin Lispro [HumaLOG] 6 unit SUBCUT WITHLUNCH 12/11/14 [History] Insulin Lispro [HumaLOG] 10 unit SUBCUT WITHDINNER 12/11/14 [History] Ipratropium [place] 0.2 mg IH QID PRN 12/11/14 [History] Omeprazole 20 mg PO DAILY 12/11/14 [History] risperiDONE 1.5 mg PO BEDTIME 12/11/14 [History] Ammonium Lactate [Amlactin] 1 applic TOP BID 05/14/19 [History] Bacitracin [Bacitracin Oint] 1 applic NASBOTH BID 05/14/19 [History] Fluticasone Propionate [Flonase] 1 applic NASBOTH BEDTIME 05/14/19 [History] Gabapentin [Neurontin] 300 mg PO TID 05/14/19 [History] Glucagon,Human Recombinant [Glucagon Emergency Kit] 1 mg IM ASDIRECTED PRN 05/14/19 [History] Insulin Lispro [HumaLOG] 3 - 5 units SUBCUT QID 05/14/19 [History] Losartan [Cozaar] 25 mg PO DAILY 05/14/19 [History] Menthol [Biofreeze] 1 applic TOP BID PRN 05/14/19 [History] Mineral Oil/Petrolatum [Aquaphor Healing Oint] 1 applic TOP ASDIRECTED PRN 05/14/19 [History] Mineral Oil/Petrolatum [Aquaphor Healing Oint] 1 applic TOP BID 05/14/19 [History] Montelukast [Singulair] 10 mg PO BEDTIME 05/14/19 [History] Olopatadine HCl [Patanol] 1 drop EYEBOTH BID 05/14/19 [History] Omeprazole 40 mg PO DAILY 05/14/19 [History] Pilocarpine [Pilocar 1% Ophth Soln] 1 applic PO DAILY 05/14/19 [History] Saliva Substitute Combo No.9 [Biotene] 1,000 ml MM BID 05/14/19 [History] polyethylene glycoL 3350 [MiraLAX] 17 gm PO DAILY PRN #60 packet 05/17/19 [Rx] Past Medical History HEENT History: Reports: Impaired Vision Cardiovascular History: Reports: High Cholesterol, Hypertension Gastrointestinal History: Reports: Other (See Below) Other Gastrointestinal History: ventral hernia, CHRON'S DISEASE Genitourinary History: Reports: Urinary Incontinence Psychiatric History: Reports: Schizophrenia Endocrine/Metabolic History: Reports: Diabetes, Type II - Infectious Disease History Infectious Disease History: Reports: C-Difficile, MRSA, Other (See Below) Other Infectious Disease History: cleared of MRSA and C. Diff. Social & Family History - Family History Family Medical History: No Pertinent Family History - Tobacco Use Tobacco Use Status *Q: Never Tobacco User Second Hand Smoke Exposure: No - Caffeine Use Caffeine Use: Reports: None - Recreational Drug Use Recreational Drug Use: No - Living Situation & Occupation Living situation: Reports: Extended Care Facility Occupation: Disabled ED ROS GENERAL - Review of Systems Review Of Systems: See Below Constitutional: Reports: Malaise, Decreased Appetite HEENT: Reports: Rhinitis, Sinus Problem Respiratory: Reports: Shortness of Breath, Cough Cardiovascular: Reports: No Symptoms Endocrine: Reports: No Symptoms GI/Abdominal: Reports: No Symptoms : Reports: No Symptoms Musculoskeletal: Reports: No Symptoms Skin: Reports: No Symptoms Neurological: Reports: Headache Psychiatric: Reports: No Symptoms Hematologic/Lymphatic: Reports: No Symptoms Immunologic: Reports: No Symptoms ED EXAM, GENERAL - Physical Exam Exam: See Below Exam Limited By: No Limitations General Appearance: Alert, WD/WN, No Apparent Distress Eye Exam: Bilateral Eye: Normal Inspection, PERRL Ears: Normal External Exam, Normal Canal, Hearing Grossly Normal, Normal TMs Ear Exam: Bilateral Ear: Auricle Normal, Canal Normal, TM normal Nose: Normal Inspection, Normal Mucosa, No Blood Throat/Mouth: Normal Inspection, Normal Lips, Normal Teeth, Normal Gums, Normal Oropharynx, Normal Voice, No Airway Compromise, Other (mouth breather. ) Head: Atraumatic, Normocephalic Neck: Normal Inspection, Supple, Non-Tender, Full Range of Motion Respiratory/Chest: No Respiratory Distress, Normal Breath Sounds, No Accessory Muscle Use, Rhonchi (moderate throughout) Cardiovascular: Normal Peripheral Pulses, Regular Rate, Rhythm, No Edema, No Gallop, No JVD, No Murmur, No Rub Peripheral Pulses: 2+: Radial (L), Radial (R), Posterior Tibial (L), Posterior Tibial (R) GI/Abdominal: Soft, Non-Tender Back Exam: Normal Inspection, Full Range of Motion Extremities: Normal Inspection, Normal Range of Motion, Non-Tender, No Pedal Edema, Normal Capillary Refill Neurological: Alert, Oriented, Normal Cognition, No Motor/Sensory Deficits Psychiatric: Normal Affect, Normal Mood Skin Exam: Warm, Dry, Intact, Normal Color, No Rash Lymphatic: No Adenopathy Course - Vital Signs Last Recorded V/S: Last Vital Signs Temp 98.4 F 02/21/20 08:25 Pulse 104 H 02/21/20 08:25 Resp 26 H 02/21/20 08:25 BP 143/94 H 02/21/20 08:25 Pulse Ox 88 L 02/21/20 08:25 - Orders/Labs/Meds Orders: Active Orders 24 hr Category Date Time Status Chest 2V [CR] Stat Exams 02/21/20 08:23 Ordered C-REACTIVE PROTEIN [CHEM] Stat Lab 02/21/20 08:22 Ordered CBC WITH AUTO DIFF [HEME] Stat Lab 02/21/20 08:22 Ordered COMPREHENSIVE METABOLIC PN,CMP [CHEM] Stat Lab 02/21/20 08:22 Ordered CORONAVIRUS COVID-19 RAPID [MOLEC] Stat Lab 02/21/20 08:22 Ordered CULTURE BLOOD [BC] Stat Lab 02/21/20 08:23 Ordered CULTURE BLOOD [BC] Stat Lab 02/21/20 08:23 Ordered LACTIC ACID [CHEM] Stat Lab 02/21/20 08:22 Ordered MAGNESIUM [CHEM] Stat Lab 02/21/20 08:22 Ordered Blood Culture x2 Reflex Set [OM.PC] Stat Oth 02/21/20 08:22 Ordered - Re-Assessments/Exams Free Text/Narrative Re-Assessment/Exam: 02/21/20 09:00 Upon exam, patient 85% on 2L NC, patient was titrated to 5L NC, now at 91%. Does not appear distressed. Will admit patient. Departure - Departure Time of Disposition: 09:25 Disposition: DC/Tfer to Acute Hospital 02 Condition: Fair Clinical Impression: COVID-19, Hypoxia - Discharge Information *PRESCRIPTION DRUG MONITORING PROGRAM REVIEWED*: Not Applicable *COPY OF PRESCRIPTION DRUG MONITORING REPORT IN PATIENT [place]: Not Applicable Forms: ED Department Discharge Sepsis Event Note (ED) - Evaluation Sepsis Screening Result: No Definite Risk - Focused Exam Vital Signs: Vital Signs Temp Pulse Resp BP Pulse Ox 02/21/20 08:25 98.4 F 104 H 26 H 143/94 H 88 L - Assessment/Plan Admission H&P: Please use this note as an admission H&P Plan: PLEASE SEE RN NOTE FOR PFSH
[2020-02-21] MEDS ORDERED: Polyethylene Glycol 3350 Powder 17 GM Packet PO PRN (11:31)
[2020-02-21] MEDS ORDERED: Sodium Chloride 0.9% 1,000 ML IV SCH (11:31)
[2020-02-21] MEDS ORDERED: Glucagon,Human Recombinant 1 MG Vial IM PRN ×3 (11:31→12:17)
[2020-02-21] MEDS ORDERED: Albuterol 8 GM Inhaler INH PRN (11:31)
[2020-02-21] MEDS ORDERED: Non-Formulary Medication 1 Each (Menthol [Biofreeze] 1 APPLIC) TOP PRN (11:31)
[2020-02-21] MEDS ORDERED: 50% Dextrose in Water 50 ML Syringe IV PRN ×3 (11:31→12:17)
[2020-02-21] MEDS ORDERED: Docusate Sodium 100 MG Cap PO PRN (11:31)
[2020-02-21] MEDS ORDERED: Ondansetron 4 MG Tab.DIS PO PRN (11:31)
[2020-02-21] MEDS ORDERED: Ibuprofen 200 MG Tab PO PRN (11:31)
[2020-02-21] MEDS ORDERED: Acetaminophen 325 MG Tab PO PRN (11:31)
[2020-02-21] MEDS ORDERED: Non-Formulary Medication 1 Each (Benzonatate [Tessalon Perle] 100 MG) PO PRN (11:34)
[2020-02-21] MEDS ORDERED: Insulin Lispro 100 Units/ML 3 ML Vial SUBCUT SCH (12:00)
[2020-02-21] MEDS ORDERED: INSULIN LISPRO 6 UNIT SUBCUT SCH (12:00)
[2020-02-21] MEDS ORDERED: Enoxaparin 40 MG/0.4 ML Syringe SUBCUT SCH (12:00)
[2020-02-21] MEDS ORDERED: Insulin Lispro 100 Units/ML 3 ML Vial ONE (12:35)
[2020-02-21] MEDS ORDERED: Insulin Regular, Human 100 Units/ML 3 ML Vial ONE (12:38)
[2020-02-21] MEDS ORDERED: REMDESIVIR 200 MG in Sodium Chloride 0.9% 250 ML IV ONE (13:00)
[2020-02-21] MEDS: Gabapentin 300 MG Cap PO SCH ×2 (14:10→19:56)
[2020-02-21] MEDS: Benztropine 1 MG Tab PO SCH ×2 (14:10→19:56)
[2020-02-21] MEDS ORDERED: Insulin Regular, Human 100 Units/ML 3 ML Vial SUBCUT SCH ×2 (16:00→17:00)
[2020-02-21] MEDS ORDERED: INSULIN LISPRO 10 UNIT SUBCUT SCH (17:30)
[2020-02-21] MEDS: Insulin Lispro 100 Units/ML 3 ML Vial SUBCUT SCH ×2 (17:32→20:05)
[2020-02-21] MEDS ORDERED: AMMONIUM LACTATE TOP SCH (20:00)
[2020-02-21] MEDS ORDERED: Insulin Glarg,Human.Rec.Analog 100 Unit/ML SUBCUT SCH (20:00)
[2020-02-21] MEDS ORDERED: risperiDONE 1 MG Tab PO SCH (20:00)
[2020-02-21] MEDS ORDERED: Non-Formulary Medication 1 Each (Mineral Oil/Petrolatum 1 APPLIC) TOP SCH (20:00)
[2020-02-21] MEDS ORDERED: BACITRACIN NASBOTH SCH (20:00)
[2020-02-21] MEDS ORDERED: OLOPATADINE HCL EYEBOTH SCH (20:00)
[2020-02-21] MEDS ORDERED: Montelukast 10 MG Tab PO SCH (20:00)
[2020-02-21] MEDS ORDERED: SALIVA SUBSTITUTE COMBO NO 9 MM SCH (20:00)
[2020-02-21] MEDS ORDERED: atorvaSTATin 10 MG Tab PO SCH (20:00)
[2020-02-22] MEDS ORDERED: Acetaminophen 500 MG Tab PO PRN (06:52)
[2020-02-22] MEDS ORDERED: Pantoprazole 40 MG Tab.CR PO SCH (07:00)
[2020-02-22 07:38] VITALS: BP 100/57; PULSE 130
[2020-02-22] MEDS ORDERED: Sodium Chloride 0.9% 1,000 ML IV ONE ×2 (07:50→08:30)
[2020-02-22] MEDS ORDERED: Sertraline 100 MG Tab PO SCH (08:00)
[2020-02-22] MEDS ORDERED: Levofloxacin 500 MG Tab PO SCH (08:00)
[2020-02-22] MEDS ORDERED: Dexamethasone 4 MG Tab PO SCH (08:00)
[2020-02-22] MEDS ORDERED: PILOCARPINE PO SCH (08:00)
[2020-02-22] MEDS ORDERED: INSULIN LISPRO 10 UNIT SUBCUT SCH (08:00)
[2020-02-22] MEDS ORDERED: Losartan 25 MG Tab PO SCH (08:00)
[2020-02-22] MEDS ORDERED: Multivitamin Tab PO SCH (08:00)
[2020-02-22 08:40] LABS: O2 DELIVERY DEVICE NON REBR MASK
[2020-02-22 08:42] LABS: O2 SATURATION ARTERIAL 93 % (95-98)
[2020-02-22] MEDS ORDERED: Iopamidol 755 Mg/ML 100 ML Bottle IVPUSH ONE (08:42)
[2020-02-22 08:43] LABS: PCO2 ARTERIAL 29 mm/Hg0 (35-45); PO2 ARTERIAL 62 mm/Hg (80-100)
--- NOTE | 2020-02-22 08:45 | PCM.DCSUM1 ---
Discharge Summary - Hospital Course HPI Initial Comments: 02/22/2020 0820am This patient is a 44 year old male admitted yesterday for COVID and hypoxia requiring NC oxygen. He was started on Remdesivir and Dexamethasone. Upon starting rounds, KECIA Bradshaw, came out patient room to tell me about patient. Patient this morning had a BS in the 40s, was diaphoretic, pale, not feeling well. They gave him some orange juice to rebound BS, now is 120. The patient had a fever this morning, was given Tylenol and Motrin, but remains elevated temp of 101.5. The patient dropped his oxygen saturation in the 70s on his 2L NC, now is on a 15L NRB. I went in right away to evaluate this patient. His BP is 70 systolic, HR 140, Oxygen is 90% currently on a NRB, respiratory rate of about 36, able to talk, but not in complete sentences. Patient reports he just does note feel very good, and feels short of breath. 2L NS bolus ordered now, keep patient on NRB 15L, in addition to his previously ordered labs for this morning lactic acid, d-dimer, abg, troponin, ck. EKG ordered. Also ordered a CTA of the chest. Patient BP after about 400ml NS is 85/55, HR 120. I called and spoke to Dr. Rojas at [facility] about this patient, he has accepted the patient. Wants CTA of the chest to rule out PE if able to get prior to flight arrival. He says may give pressors if needed. At this time, believe patient BP is responding to fluids, if does not, will add pressors. Flight in route. 02/22/2020 0840am Spoke to wire mesh gate assembler wong of the [facility] over this patient about transfer she has accepted. Her name is Sofie Wiggins. The risk vs benefits explained to state Sofie. Risk are transfer are , worsening of condition, helicopter crash, intubation. The risk of staying in [place] is worsening of condition, , no higher level of care. The benefits of transfer are higher level of care, COVID unit, Bipap if needed. The benefits of staying in [place] is close to home. 02/22/2020 0900am Patient BP is now 91/51 after 900ml NS, systolic is improving. At this time, no pressors, will continue bolus. Patient to [place] now. Flight in route. - Discharge Data Discharge Date: 02/22/20 Discharge Disposition: DC/Tfer to Acute Hospital 02 Preliminary Cause of *Q: Respiratory Failure Condition: Serious - Referral to Home Health Primary Care Physician: PCP Unknown - Discharge Plan *PRESCRIPTION DRUG MONITORING PROGRAM REVIEWED*: Not Applicable *COPY OF PRESCRIPTION DRUG MONITORING REPORT IN PATIENT [place]: Not Applicable Home Medications: Home Meds Multivitamin with Minerals [Multivitamins with Minerals] 1 each PO DAILY 06/21/13 [History] Sertraline [Zoloft] 200 mg PO DAILY 06/21/13 [History] atorvaSTATin [Lipitor] 10 mg PO BEDTIME 06/21/13 [History] Albuterol [Proventil Neb Soln] 2.5 mg INH QID PRN 12/11/14 [History] Benztropine [Cogentin] 1 mg PO TID 12/11/14 [History] Budesonide [Pulmicort] 0.5 mg IH BID 12/11/14 [History] Insulin Glarg,Human.Rec.Analog [LantUS Solostar] 42 units SUBCUT BID 12/11/14 [History] Insulin Lispro [HumaLOG] 6 unit SUBCUT WITHLUNCH 12/11/14 [History] Insulin Lispro [HumaLOG] 10 unit SUBCUT WITHBREAKFAST 12/11/14 [History] Insulin Lispro [HumaLOG] 10 unit SUBCUT WITHDINNER 12/11/14 [History] Ipratropium [place] 0.2 mg IH QID PRN 12/11/14 [History] risperiDONE 1.5 mg PO BEDTIME 12/11/14 [History] Ammonium Lactate [Amlactin] 1 applic TOP BID 05/14/19 [History] Bacitracin [Bacitracin Oint] 1 applic NASBOTH BID 05/14/19 [History] Fluticasone Propionate [Flonase] 1 applic NASBOTH BEDTIME 05/14/19 [History] Gabapentin [Neurontin] 300 mg PO TID 05/14/19 [History] Glucagon,Human Recombinant [Glucagon Emergency Kit] 1 mg IM ASDIRECTED PRN 05/14/19 [History] Insulin Lispro [HumaLOG] 3 - 5 units SUBCUT QID 05/14/19 [History] Losartan [Cozaar] 25 mg PO DAILY 05/14/19 [History] Menthol [Biofreeze] 1 applic TOP BID PRN 05/14/19 [History] Mineral Oil/Petrolatum [Aquaphor Healing Oint] 1 applic TOP BID 05/14/19 [History] Montelukast [Singulair] 10 mg PO BEDTIME 05/14/19 [History] Olopatadine HCl [Patanol] 1 drop EYEBOTH BID 05/14/19 [History] Omeprazole 40 mg PO DAILY 05/14/19 [History] Pilocarpine [Pilocar 1% Ophth Soln] 1 applic PO DAILY 05/14/19 [History] Saliva Substitute Combo No.9 [Biotene] 1,000 ml MM BID 05/14/19 [History] polyethylene glycoL 3350 [MiraLAX] 17 gm PO DAILY PRN #60 packet 05/17/19 [Rx] Benzonatate [Tessalon Perle] 100 mg PO Q6HR PRN 02/21/20 [History] Levofloxacin 500 mg PO DAILY 02/21/20 [History] dexAMETHasone [Dexamethasone] 6 mg PO DAILY 02/21/20 [History] Oxygen Therapy Mode: Non-Rebreather Mask Oxygen Flow Rate (L/min): 15 Forms: ED Department Discharge Referrals: PCP,Unknown [Primary Care Provider] - - Discharge Summary/Plan Comment DC Time >30 min.: No - General Info Date of Service: 02/22/20 Functional Status: Reports: New Symptoms - Review of Systems General: Reports: Fever, Weakness, Fatigue, Malaise, Chills HEENT: Reports: Post Nasal Drip, Sinus Congestion, Rhinitis Pulmonary: Reports: Shortness of Breath, Cough Cardiovascular: Reports: Lightheadedness Gastrointestinal: Reports: No Symptoms Genitourinary: Reports: No Symptoms Musculoskeletal: Reports: No Symptoms Skin: Reports: Pallor, Diaphoresis Neurological: Reports: No Symptoms Psychiatric: Reports: No Symptoms - Patient Data Vitals - Most Recent: Last Vital Signs Temp 101.5 F H 02/22/20 07:44 Pulse 130 H 02/22/20 07:29 Resp 20 02/22/20 07:29 BP 100/57 L 02/22/20 07:29 Pulse Ox 91 L 02/22/20 07:29 Weight - Most Recent: 193 lb Lab Results - Last 24 hrs: Laboratory Results - last 24 hr 02/21/20 02/21/20 02/21/20 Range/Units 08:22 08:41 08:41 WBC 7.0 (5.0-10.0) 10^3/uL RBC 5.23 (4.50-6.00) 10^6/uL Hgb 14.6 (14.0-18.0) g/dL Hct 44.6 (40.0-54.0) % MCV 85.3 (82.0-94.0) fL MCH 27.9 (27.0-32.0) pg MCHC 32.7 L (33.0-38.0) g/dL RDW Coeff of Justin 13.9 (11.0-15.0) % Plt Count 136 L (150-400) 10^3/uL Neut % (Auto) (35-85) % Lymph % (Auto) (10-55) % Miller % (Auto) (0-16) % Eos % (Auto) (0-5) % Baso % (Auto) (0-3) % Neut # (Auto) (1.80-7.00) 10^3/uL Lymph # (Auto) (1.00-4.80) 10^3/uL Miller # (Auto) (0.00-0.80) 10^3/uL Eos # (Auto) (0.00-0.45) 10^3/uL Baso # (Auto) 10^3/uL Add Manual Diff Yes Neutrophils % (Manual) 92 H (35-85) % Lymphocytes % (Manual) 5 L (21-55) % Monocytes % (Manual) 3 (2-12) % Absolute Neutrophils 6.44 (1.80-7.00) 10^3/uL Lymphocytes # (Manual) 0.35 L (1.00-4.80) 10^3/uL Monocytes # (Manual) 0.21 (0.00-0.80) 10^3/uL Platelet Estimate Adequate (ADEQUATE) D-Dimer, Quantitative (0.00-0.50) Sodium 132 L (136-145) mEq/L Potassium 4.8 (3.5-5.0) mEq/L Chloride 97 L (98-106) mEq/L Carbon Dioxide 24 (21-32) mmol/L BUN 29 H (7-18) mg/dL Creatinine 1.6 H (0.7-1.3) mg/dL Est Cr Clr Drug Dosing 53.94 mL/min Estimated GFR (MDRD) 47 L (>=60) mL/min Glucose 485 H* D (75-99) mg/dL Lactic Acid (0.4-2.0) mmol/L Calcium 8.8 (8.4-10.1) mg/dL Magnesium 1.7 L (1.8-2.4) mg/dL Total Bilirubin 0.3 (0.0-1.0) mg/dL AST 61 H (15-37) U/L ALT 61 (12-78) U/L Alkaline Phosphatase 89 (46-116) U/L C-Reactive Protein 8.5 H (0.2-0.8) mg/dL Total Protein 8.2 (6.4-8.2) g/dL Albumin 3.3 L (3.4-5.0) g/dL SARS CoV-2 RNA Rapid WALI Positive H (NEGATIVE) 02/21/20 02/22/20 02/22/20 Range/Units 08:41 07:11 07:11 WBC 6.7 (5.0-10.0) 10^3/uL RBC 5.05 (4.50-6.00) 10^6/uL Hgb 14.3 (14.0-18.0) g/dL Hct 42.9 (40.0-54.0) % MCV 85.0 (82.0-94.0) fL MCH 28.3 (27.0-32.0) pg MCHC 33.3 (33.0-38.0) g/dL RDW Coeff of Justin 14.1 (11.0-15.0) % Plt Count 155 (150-400) 10^3/uL Neut % (Auto) 83.3 (35-85) % Lymph % (Auto) 7.5 L (10-55) % Miller % (Auto) 9.2 (0-16) % Eos % (Auto) 0 (0-5) % Baso % (Auto) 0 (0-3) % Neut # (Auto) 5.54 (1.80-7.00) 10^3/uL Lymph # (Auto) 0.50 L (1.00-4.80) 10^3/uL Miller # (Auto) 0.61 (0.00-0.80) 10^3/uL Eos # (Auto) 0.00 (0.00-0.45) 10^3/uL Baso # (Auto) 0.00 10^3/uL Add Manual Diff Neutrophils % (Manual) (35-85) % Lymphocytes % (Manual) (21-55) % Monocytes % (Manual) (2-12) % Absolute Neutrophils (1.80-7.00) 10^3/uL Lymphocytes # (Manual) (1.00-4.80) 10^3/uL Monocytes # (Manual) (0.00-0.80) 10^3/uL Platelet Estimate (ADEQUATE) D-Dimer, Quantitative (0.00-0.50) Sodium 143 (136-145) mEq/L Potassium 3.8 D (3.5-5.0) mEq/L Chloride 106 (98-106) mEq/L Carbon Dioxide 26 (21-32) mmol/L BUN 33 H (7-18) mg/dL Creatinine 1.4 H (0.7-1.3) mg/dL Est Cr Clr Drug Dosing 61.64 mL/min Estimated GFR (MDRD) 55 L (>=60) mL/min Glucose 42 L D (75-99) mg/dL Lactic Acid 2.6 H (0.4-2.0) mmol/L Calcium 8.6 (8.4-10.1) mg/dL Magnesium (1.8-2.4) mg/dL Total Bilirubin 0.2 (0.0-1.0) mg/dL AST 85 H (15-37) U/L ALT 85 H (12-78) U/L Alkaline Phosphatase 74 (46-116) U/L C-Reactive Protein 6.0 H (0.2-0.8) mg/dL Total Protein 7.3 (6.4-8.2) g/dL Albumin 2.9 L (3.4-5.0) g/dL SARS CoV-2 RNA Rapid WALI (NEGATIVE) 02/22/20 Range/Units 07:11 WBC (5.0-10.0) 10^3/uL RBC (4.50-6.00) 10^6/uL Hgb (14.0-18.0) g/dL Hct (40.0-54.0) % MCV (82.0-94.0) fL MCH (27.0-32.0) pg MCHC (33.0-38.0) g/dL RDW Coeff of Justin (11.0-15.0) % Plt Count (150-400) 10^3/uL Neut % (Auto) (35-85) % Lymph % (Auto) (10-55) % Miller % (Auto) (0-16) % Eos % (Auto) (0-5) % Baso % (Auto) (0-3) % Neut # (Auto) (1.80-7.00) 10^3/uL Lymph # (Auto) (1.00-4.80) 10^3/uL Miller # (Auto) (0.00-0.80) 10^3/uL Eos # (Auto) (0.00-0.45) 10^3/uL Baso # (Auto) 10^3/uL Add Manual Diff Neutrophils % (Manual) (35-85) % Lymphocytes % (Manual) (21-55) % Monocytes % (Manual) (2-12) % Absolute Neutrophils (1.80-7.00) 10^3/uL Lymphocytes # (Manual) (1.00-4.80) 10^3/uL Monocytes # (Manual) (0.00-0.80) 10^3/uL Platelet Estimate (ADEQUATE) D-Dimer, Quantitative 0.88 H (0.00-0.50) Sodium (136-145) mEq/L Potassium (3.5-5.0) mEq/L Chloride (98-106) mEq/L Carbon Dioxide (21-32) mmol/L BUN (7-18) mg/dL Creatinine (0.7-1.3) mg/dL Est Cr Clr Drug Dosing mL/min Estimated GFR (MDRD) (>=60) mL/min Glucose (75-99) mg/dL Lactic Acid (0.4-2.0) mmol/L Calcium (8.4-10.1) mg/dL Magnesium (1.8-2.4) mg/dL Total Bilirubin (0.0-1.0) mg/dL AST (15-37) U/L ALT (12-78) U/L Alkaline Phosphatase (46-116) U/L C-Reactive Protein (0.2-0.8) mg/dL Total Protein (6.4-8.2) g/dL Albumin (3.4-5.0) g/dL SARS CoV-2 RNA Rapid WALI (NEGATIVE) Med Orders - Current: Current Medications Acetaminophen (Tylenol Extra Strength) 1,000 mg PO Q4H PRN PRN Reason: Pain (Mild 1-3)/fever Last Admin: 02/22/20 07:44 Dose: 1,000 mg Documented by: Albuterol (Ventolin Hfa) 0 gm INH Q4H PRN PRN Reason: Dyspnea Atorvastatin Calcium (Lipitor) 10 mg PO BEDTIME [facility] Last Admin: 02/21/20 19:55 Dose: 10 mg Documented by: Benztropine Mesylate (Cogentin) 1 mg PO TID [facility] Last Admin: 02/21/20 19:56 Dose: 1 mg Documented by: Dexamethasone (Dexamethasone) 6 mg PO DAILY [facility] Dextrose/Water (Dextrose 50% In Water) 50 ml IV ASDIRECTED PRN PRN Reason: Hypoglycemia Docusate Sodium (Colace) 100 mg PO BID PRN PRN Reason: Constipation Enoxaparin Sodium (Lovenox) 40 mg SUBCUT Q24H [facility] Last Admin: 02/21/20 12:11 Dose: 40 mg Documented by: Gabapentin (Neurontin) 300 mg PO TID [facility] Last Admin: 02/21/20 19:56 Dose: 300 mg Documented by: Glucagon (Glucagen) 1 mg IM ASDIRECTED PRN PRN Reason: Hypoglycemia Remdesivir 100 mg/ Sodium (Chloride) 100 mls @ 100 mls/hr IV Q24H [facility] Stop: 02/25/20 13:59 Ibuprofen (Motrin) 600 mg PO Q6H PRN PRN Reason: Pain (mild 1-3) Last Admin: 02/22/20 04:52 Dose: 600 mg Documented by: Insulin Glargine (Lantus) 42 unit SUBCUT BID [facility] Last Admin: 02/21/20 20:10 Dose: 42 units Documented by: Insulin Human Lispro (Humalog) 0 unit SUBCUT WITHMEALSANDBED [facility]; Protocol Last Admin: 02/21/20 20:05 Dose: 15 unit Documented by: Levofloxacin (Levaquin) 500 mg PO DAILY [facility] Losartan Potassium (Cozaar) 25 mg PO DAILY [facility] Montelukast Sodium (Singulair) 10 mg PO BEDTIME [facility] Last Admin: 02/21/20 19:56 Dose: 10 mg Documented by: Multivitamins/Minerals/Vitamin C (Tab-A-Ben) 1 tab PO DAILY [facility] Non-Formulary Medication (Benzonatate [Tessalon Perle]) 100 mg PO Q6HR PRN PRN Reason: Cough Ondansetron HCl (Zofran Odt) 4 mg PO Q6H PRN PRN Reason: nausea, able to take PO Pantoprazole Sodium (Protonix) 40 mg PO ACBREAKFAST [facility] Polyethylene Glycol (Miralax) 17 gm PO DAILY PRN PRN Reason: Constipation Risperidone (Risperidal) 1.5 mg PO BEDTIME [facility] Last Admin: 02/21/20 19:56 Dose: 1.5 mg Documented by: Sertraline HCl (Zoloft) 200 mg PO DAILY [facility] Discontinued Medications Acetaminophen (Tylenol) 650 mg PO Q4H PRN PRN Reason: Pain (Mild 1-3)/fever Last Admin: 02/22/20 03:18 Dose: 650 mg Documented by: Dextrose/Water (Dextrose 50% In Water) 50 ml IV ASDIRECTED PRN PRN Reason: Hypoglycemia Dextrose/Water (Dextrose 50% In Water) 50 ml IV ASDIRECTED PRN PRN Reason: Hypoglycemia Glucagon (Glucagen) 1 mg IM ASDIRECTED PRN PRN Reason: Hypoglycemia Glucagon (Glucagen) 1 mg IM ASDIRECTED PRN PRN Reason: Hypoglycemia Sodium Chloride (Normal Saline) 1,000 mls @ 125 mls/hr IV ASDIRECTED [facility] Stop: 02/21/20 19:30 Last Admin: 02/21/20 14:10 Dose: 125 mls/hr Documented by: Remdesivir 200 mg/ Sodium (Chloride) 250 mls @ 250 mls/hr IV ONETIME ONE Stop: 02/21/20 13:59 Last Admin: 02/21/20 12:12 Dose: 250 mls/hr Documented by: Insulin Human Lispro (Humalog) 3 - 5 unit SUBCUT QID [facility] Insulin Human Lispro (Humalog) Confirm Administered Dose 300 unit .ROUTE .STK-M ED ONE Stop: 02/21/20 12:36 Last Admin: 02/21/20 12:20 Dose: Not Given Documented by: Insulin Human Regular (Humulin R) 0 unit SUBCUT BIDAC [place]; Protocol Insulin Human Regular (Humulin R) 0 unit SUBCUT QIDACANDBED [place]; Protocol Insulin Human Regular (Humulin R) Confirm Administered Dose 300 unit .ROUTE .STK-MED ONE Stop: 02/21/20 12:39 Last Admin: 02/21/20 12:20 Dose: Not Given Documented by: Non-Formulary Medication (Ammonium Lactate [Amlactin]) 1 applic TOP BID [place] Non-Formulary Medication (Bacitracin [Bacitracin Oint]) 1 applic NASBOTH BID [place] Non-Formulary Medication (Insulin Lispro) 6 unit SUBCUT WITHLUNCH [place] Non-Formulary Medication (Insulin Lispro) 10 unit SUBCUT WITHBREAKFAST [place] Non-Formulary Medication (Insulin Lispro) 10 unit SUBCUT WITHDINNER [place] Non-Formulary Medication (Menthol [Biofreeze]) 1 applic TOP BID PRN PRN Reason: Pain Non-Formulary Medication (Mineral Oil/Petrolatum) 1 applic TOP BID [place] Non-Formulary Medication (Olopatadine Hcl [Patanol]) 1 drop EYEBOTH BID [place] Non-Formulary Medication (Pilocarpine [Pilocar 1% Ophth Soln]) 1 applic PO DAILY [place] Non-Formulary Medication (Saliva Substitute Combo No.9 [Biotene]) 1,000 ml MM BID [place] - Exam Quality Assessment: Reports: Supplemental Oxygen (NRB 15L) General: Reports: Alert, Oriented, Moderate Distress Neck: Reports: Supple, Trachea Midline, No JVD Lungs: Reports: Decreased Breath Sounds, Rhonchi, Other (Rate of 36/min, distressed) Cardiovascular: Reports: Tachycardia (120) GI/Abdominal Exam: Soft, Non-Tender Back Exam: Reports: Normal Inspection Extremities: Normal Inspection, Normal Range of Motion, Non-Tender, No Pedal Edema, Normal Capillary Refill Skin: Reports: Other (warm, diaphoretic, and pallor) Neurological: Reports: No New Focal Deficit Psy/Mental Status: Reports: Alert, Anxious #1 Interpretation EKG Date: 02/22/20 Time: 08:59 Rate (Beats/Min): 115 (sinus tach, fromw what i can tell, artifact, poor quality)
[2020-02-22] MEDS ORDERED: Sodium Chloride 0.9% 1,000 ML ONE (08:53)
[2020-02-22] MEDS ORDERED: REMDESIVIR 100 MG in Sodium Chloride 0.9% 100 ML IV SCH (13:00)
== END 2020-02-22 09:45 | DRG 177 ==
LOC: CC.ED 08:21 → UNDOADMIN 10:30 → CC.MS 10:30 → UNDODISIN 02-22 09:45
PROVIDERS: ADMIT Nurse Practitioner; ATTEND Family Medicine
DX: U07.1 COVID-19 (principal); R09.02 Hypoxemia; Z88.8 Allergy status to other drugs, medicaments and biological substances; J12.89 Other viral pneumonia; H54.7 Unspecified visual loss; E78.00 Pure hypercholesterolemia, unspecified; K50.90 Crohn's disease, unspecified, without complications; I10 Essential (primary) hypertension; R32 Unspecified urinary incontinence; K43.9 Ventral hernia without obstruction or gangrene; F20.9 Schizophrenia, unspecified; Z79.51 Long term (current) use of inhaled steroids; E11.9 Type 2 diabetes mellitus without complications; Z88.5 Allergy status to narcotic agent; Z79.4 Long term (current) use of insulin; Z79.899 Other long term (current) drug therapy
CPT/HCPCS: 36415; 36600; 71046; 71275; 80053; 82550; 82803; 83605; 83735; 84484; 85025; 85379; 86140; 87040; 93005; 99285-25; A9270-GY; J1650; J1815-GY; J7030; J7050; Q9967; U0002